=== PATIENT | female | born 1955 | race Caucasian/White ===

== ENCOUNTER 2016-10-11 11:10 | Emergency (ER) | payer BC ==
[~2016-10-11] VITALS: Ht 157.5 cm; Wt 48.0 kg
[~2016-10-11 11:10] MED LIST: PERCOCET 5/31 TABLET PO
[2016-10-11 12:25] LABS: HEMATOCRIT 37.6 % (36.0-46.0); MCH 31.6 PG (29.0-34.0); MCHC 33.2 G/DL (30.0-36.0); MCV 95.2 FL (83-99); PLATELET COUNT 247 K/uL (156-360); RBC DIS.WIDTH-CV 12.5 % (11.8-14.6); RBC DIS.WIDTH-SD 42.1 % (39-53); RED BLOOD COUNT 3.95 M/uL (3.80-5.20); WHITE BLOOD COUNT 7.4 K/uL (4.1-10.2)
[2016-10-11 12:35] LABS: CHLORIDE 106 mEq/L (99-109); POTASSIUM 4.1 mEq/L (3.7-5.4); SODIUM 140 mEq/L (136-147)
[2016-10-11 12:37] LABS: GLUCOSE 92 mg/dL (70-99)
[2016-10-11 12:38] LABS: ANION GAP 10 MEQ/L (2-14)
[2016-10-11 12:40] LABS: GFR ESTIMATE (CALCULATED) > 59 mL/min/
[2016-10-11 12:41] LABS: UREA NITROGEN (BUN) 10 mg/dL (9-23)
[2016-10-11 13:37] VITALS: BP 110/70
== END 2016-10-11 13:44 | disposition home or self-care (01) ==
LOC: EME 11:10
PROVIDERS: Emergency Medicine
DX: G62.9 Polyneuropathy, unspecified (principal); E78.5 Hyperlipidemia, unspecified
CPT/HCPCS: 70450; 80048; 85027; 99281; 99284